=== PATIENT | male | born 1990 | race Two or more races ===

== ENCOUNTER 2019-07-19 13:29 | Inpatient (IN) | payer MEDICAID ==
[~2019-07-19] VITALS: Ht 180.3 cm; Wt 86.9 kg
[2019-07-19] MEDS ORDERED: METF-960 PO (13:56)
[2019-07-19] MEDS ORDERED: LOSA25TA71 PO (13:56)
[2019-07-19] MEDS ORDERED: SERT50TA12 PO (13:56)
[2019-07-19] MEDS ORDERED: LOSA50TA37 PO (14:01)
[2019-07-19 14:59] LABS: BASOPHILS % (AUTO) 0.2 % (0.0-2.0); EOSINOPHILS % (AUTO) 1.4 % (1.0-6.0); HEMATOCRIT 38.2 % (41-53); HEMOGLOBIN 12.6 g/dL (13.5-17.5); LYMPHOCYTES # (AUTO) 1.6 K/uL (1.0-4.8); LYMPHOCYTES % (AUTO) 15.9 % (22.0-44.0); MEAN CORPUSCULAR HEMOGLOBIN 27.5 pg (26.0-34.0); MEAN CORPUSCULAR VOLUME 83 fL (80-100); MONOCYTES # (AUTO) 0.8 K/uL (0.1-1.0); MONOCYTES % (AUTO) 7.7 % (2.0-9.0); NEUTROPHILS # (AUTO) 7.7 K/uL (1.8-7.7); NEUTROPHILS % (AUTO) 74.8 % (40.0-70.0); PLATELET COUNT (AUTO) 360 K/uL (150-450); RED BLOOD CELL COUNT(AUTO) 4.58 MIL/uL (4.50-5.90)
[2019-07-19 15:25] LABS: ANION GAP 12 mmol/L (8-16); CALCIUM, TOTAL 9.3 mg/dL (8.8-10.5); CARBON DIOXIDE 27 mmol/L (22-29); CHLORIDE 100 mmol/L (98-107); CREATININE 0.83 mg/dL (0.60-1.30); GLOMERULAR FILTR. RATE CALC > 60 mL/min (>60); GLUCOSE,RANDOM 197 mg/dL (70-110); POTASSIUM 3.7 mmol/L (3.5-5.1); SODIUM SERUM 139 mmol/L (136-145); UREA NITROGEN, BLOOD 11 mg/dL (7-18)
[2019-07-19 15:31] LABS: ALANINE AMINOTRANSFERASE 52 U/L (12-78); ALBUMIN 4.6 g/dL (3.4-5.0); ALKALINE PHOSPHATASE 59 U/L (46-116); ASPARTATE AMINOTRANSFERASE 53 U/L (15-37); BILIRUBIN,TOTAL 0.4 mg/dL (0.1-1.0); TOTAL PROTEIN, SERUM 8.4 g/dL (6.4-8.2)
[2019-07-19 16:15] LABS: AMPHET/METH SCREEN,URINE NEGATIVE (NEGATIVE); BARBITURATE SCREEN, URINE NEGATIVE (NEGATIVE); BENZODIAZEPINES SCREEN,URINE NEGATIVE (NEGATIVE); CANNABINOID SCREEN,URINE NEGATIVE (NEGATIVE); COCAINE SCREEN,URINE NEGATIVE (NEGATIVE); METHADONE SCREEN, URINE NEGATIVE (NEGATIVE); OPIATE SCREEN,URINE NEGATIVE (NEGATIVE)
[2019-07-19 16:16] LABS: PHENCYCLIDINE SCREEN,URINE NEGATIVE (NEGATIVE)
[2019-07-19] MEDS ORDERED: LOPERAMIDE HCL 2 MG CAPSULE PO PRN (18:45)
[2019-07-19] MEDS ORDERED: HydrOXYzine PAMOATE 50 MG CAPSULE PO PRN (18:45)
[2019-07-19] MEDS ORDERED: OLANZapine 5 MG RAPDIS TABLET PO PRN (18:45)
[2019-07-19] MEDS ORDERED: TUBERCULIN, PURIFIED PROTEIN DERIVATIVE 5 TU/0.1 ML SYRINGE ID ONE (18:45)
[2019-07-19] MEDS ORDERED: MAGNESIUM HYDROXIDE SUSPENSION 30 ML UDCUP PO PRN (18:45)
[2019-07-19] MEDS ORDERED: MAG HYDROX/AL HYDROX/SIMETH ES 30 ML SUSPENSION UDCUP PO PRN (18:45)
[2019-07-19] MEDS ORDERED: GuaiFENesin/D-METHORPHAN [SUGAR-FREE] 200-20MG/10 ML SYRUP UDCUP PO PRN (18:45)
[2019-07-19] MEDS ORDERED: ZOLPIDEM TARTRATE 10 MG TABLET PO PRN (18:45)
[2019-07-19] MEDS ORDERED: PROMETHAZINE HCL 25 MG TABLET PO PRN (18:45)
[2019-07-19] MEDS: THIAMINE 100 MG TABLET PO SCH (19:16)
[2019-07-19] MEDS: LORazepam 2 MG TABLET PO PRN (19:45)
[2019-07-19 23:10] VITALS: BP 141/82
[2019-07-19 23:13] LABS: GLUCOSE,POINT OF CARE 260 MG/DL (70-110)
[2019-07-19] MEDS ORDERED: PNEUMOCOCCAL VACCINE POLYVALENT 0.5 ML VIAL [PPSV23] IM ONE (23:30)
[2019-07-20 07:51] LABS: CHOL/HDL RATIO 4.5 (4.2-7.3); FREE T4 (FREE THYROXINE) 1.15 ng/dL (0.76-1.46); THYROID STIMULATING HORMONE 0.22 uIU/mL (0.36-3.74)
[2019-07-20 08:30] VITALS: BP 126/98
[2019-07-20] MEDS ORDERED: SERTRALINE HCL 50 MG TABLET PO SCH (09:00)
[2019-07-20] MEDS ORDERED: OLANZapine 5 MG RAPDIS TABLET PO SCH (09:00)
[2019-07-20] MEDS: THIAMINE 100 MG TABLET PO SCH ×2 (09:19→16:54)
[2019-07-20] MEDS: MULTIVITAMINS WITH MINERALS, THERAPEUTIC TABLET PO SCH (09:19)
[2019-07-20] MEDS: FOLIC ACID 1 MG TABLET PO SCH (09:19)
[2019-07-20] MEDS: NALTREXONE HCL 50 MG TABLET PO SCH (09:19)
[2019-07-20] MEDS: ACETAMINOPHEN 325 MG TABLET PO PRN (09:24)
[2019-07-20] MEDS ORDERED: DEXTROSE 50%-WATER 25 GM/50 ML SYRINGE IVP PRN (14:30)
[2019-07-20 16:00] VITALS: BP 150/79
[2019-07-20] MEDS: MetFORMIN HCL 500 MG TABLET PO SCH (16:54)
[2019-07-20 17:36] LABS: GLUCOMETER DEV NAME(LOC) 3E.I 2; GLUCOSE,POINT OF CARE 158 MG/DL (70-110)
[2019-07-20] MEDS: INSULIN LISPRO 100 UNITS/ML SQ PRN (17:41)
[2019-07-20] MEDS ORDERED: LURASIDONE HCL 20 MG TABLET PO PRN (20:00)
[2019-07-20] MEDS ORDERED: LURASIDONE HCL 20 MG TABLET PO SCH (21:00)
[2019-07-21] MEDS: LORazepam 2 MG TABLET PO PRN ×2 (02:47→08:59)
[2019-07-21 02:49] VITALS: BP 157/99
[2019-07-21 05:53] LABS: GLUCOMETER DEV NAME(LOC) 3E.I 2; GLUCOSE,POINT OF CARE 194 MG/DL (70-110)
[2019-07-21] MEDS: MetFORMIN HCL 500 MG TABLET PO SCH ×2 (06:43→16:38)
[2019-07-21] MEDS: INSULIN LISPRO 100 UNITS/ML SQ PRN ×2 (06:47→17:06)
[2019-07-21] MEDS: FOLIC ACID 1 MG TABLET PO SCH (08:15)
[2019-07-21] MEDS: THIAMINE 100 MG TABLET PO SCH ×2 (08:15→16:37)
[2019-07-21] MEDS: NALTREXONE HCL 50 MG TABLET PO SCH (08:15)
[2019-07-21] MEDS: SERTRALINE HCL 50 MG TABLET PO SCH (08:15)
[2019-07-21] MEDS: MULTIVITAMINS WITH MINERALS, THERAPEUTIC TABLET PO SCH (08:15)
[2019-07-21 08:30] VITALS: BP 153/98
[2019-07-21 16:00] VITALS: BP 146/83
[2019-07-21 17:45] LABS: GLUCOMETER DEV NAME(LOC) 3E.I 2; GLUCOSE,POINT OF CARE 170 MG/DL (70-110)
[2019-07-21] MEDS ORDERED: LURASIDONE HCL 40 MG TABLET PO SCH (21:00)
[2019-07-22 03:18] VITALS: BP 143/103
[2019-07-22 05:31] LABS: GLUCOMETER DEV NAME(LOC) 3E.I 2; GLUCOSE,POINT OF CARE 178 MG/DL (70-110)
[2019-07-22] MEDS: MetFORMIN HCL 500 MG TABLET PO SCH ×2 (06:35→16:36)
[2019-07-22] MEDS: INSULIN LISPRO 100 UNITS/ML SQ PRN (06:36)
[2019-07-22] MEDS: SERTRALINE HCL 50 MG TABLET PO SCH (08:11)
[2019-07-22] MEDS: NALTREXONE HCL 50 MG TABLET PO SCH (08:12)
[2019-07-22] MEDS: THIAMINE 100 MG TABLET PO SCH ×2 (08:12→16:36)
[2019-07-22] MEDS: FOLIC ACID 1 MG TABLET PO SCH (08:12)
[2019-07-22] MEDS: MULTIVITAMINS WITH MINERALS, THERAPEUTIC TABLET PO SCH (08:12)
[2019-07-22 08:30] VITALS: BP 143/97
[2019-07-22 17:04] LABS: GLUCOMETER DEV NAME(LOC) 3E.I 2; GLUCOSE,POINT OF CARE 139 MG/DL (70-110)
[2019-07-22 17:40] VITALS: BP 140/94
[2019-07-22] MEDS: ACETAMINOPHEN 325 MG TABLET PO PRN (17:50)
[2019-07-22] MEDS: LURASIDONE HCL 60 MG TABLET PO SCH (20:18)
[2019-07-22] MEDS: LORazepam 2 MG TABLET PO PRN (20:18)
[2019-07-23 06:05] LABS: GLUCOMETER DEV NAME(LOC) 3E.I 2; GLUCOSE,POINT OF CARE 159 MG/DL (70-110)
[2019-07-23 06:44] VITALS: BP 138/109
[2019-07-23] MEDS: MetFORMIN HCL 500 MG TABLET PO SCH ×2 (07:01→16:44)
[2019-07-23] MEDS: INSULIN LISPRO 100 UNITS/ML SQ PRN (07:05)
[2019-07-23 08:26] VITALS: BP 137/86
[2019-07-23] MEDS: SERTRALINE HCL 50 MG TABLET PO SCH (08:33)
[2019-07-23] MEDS: THIAMINE 100 MG TABLET PO SCH ×2 (08:33→16:44)
[2019-07-23] MEDS: FOLIC ACID 1 MG TABLET PO SCH (08:33)
[2019-07-23] MEDS: MULTIVITAMINS WITH MINERALS, THERAPEUTIC TABLET PO SCH (08:33)
[2019-07-23] MEDS: NALTREXONE HCL 50 MG TABLET PO SCH (08:34)
[2019-07-23 11:39] LABS: GLUCOMETER DEV NAME(LOC) 3E.I 2; GLUCOSE,POINT OF CARE 132 MG/DL (70-110)
[2019-07-23 16:50] VITALS: BP 144/83
[2019-07-23 17:55] LABS: GLUCOMETER DEV NAME(LOC) 3E.I 2; GLUCOSE,POINT OF CARE 137 MG/DL (70-110)
[2019-07-23 19:20] VITALS: BP 146/98
[2019-07-23] MEDS: LORazepam 2 MG TABLET PO PRN (19:20)
[2019-07-23] MEDS: LURASIDONE HCL 60 MG TABLET PO SCH (20:14)
[2019-07-24 05:35] LABS: GLUCOMETER DEV NAME(LOC) 3E.I 2; GLUCOSE,POINT OF CARE 102 MG/DL (70-110)
[2019-07-24] MEDS: MetFORMIN HCL 500 MG TABLET PO SCH ×2 (06:35→16:33)
[2019-07-24] MEDS: NALTREXONE HCL 50 MG TABLET PO SCH (08:28)
[2019-07-24] MEDS: MULTIVITAMINS WITH MINERALS, THERAPEUTIC TABLET PO SCH (08:28)
[2019-07-24] MEDS: THIAMINE 100 MG TABLET PO SCH ×2 (08:28→16:08)
[2019-07-24] MEDS: SERTRALINE HCL 50 MG TABLET PO SCH (08:29)
[2019-07-24] MEDS: FOLIC ACID 1 MG TABLET PO SCH (08:29)
[2019-07-24 10:29] VITALS: BP 154/92
[2019-07-24 16:00] VITALS: BP 158/86
[2019-07-24] MEDS: ACETAMINOPHEN 325 MG TABLET PO PRN (16:40)
[2019-07-24 16:56] LABS: GLUCOMETER DEV NAME(LOC) 3E.I 2; GLUCOSE,POINT OF CARE 120 MG/DL (70-110)
[2019-07-24] MEDS: LURASIDONE HCL 60 MG TABLET PO SCH (21:21)
[2019-07-24] MEDS: LORazepam 2 MG TABLET PO PRN (22:22)
[2019-07-25 05:41] LABS: GLUCOMETER DEV NAME(LOC) 3E.I 2; GLUCOSE,POINT OF CARE 90 MG/DL (70-110)
[2019-07-25] MEDS: MetFORMIN HCL 500 MG TABLET PO SCH ×2 (06:35→17:08)
[2019-07-25 09:21] VITALS: BP 153/82
[2019-07-25] MEDS: SERTRALINE HCL 50 MG TABLET PO SCH (09:24)
[2019-07-25] MEDS: THIAMINE 100 MG TABLET PO SCH ×2 (09:25→17:08)
[2019-07-25] MEDS: NALTREXONE HCL 50 MG TABLET PO SCH (09:25)
[2019-07-25] MEDS: FOLIC ACID 1 MG TABLET PO SCH (09:25)
[2019-07-25] MEDS: MULTIVITAMINS WITH MINERALS, THERAPEUTIC TABLET PO SCH (09:25)
[2019-07-25] MEDS: BACITRACIN 28.4 GM OINTMENT TP SCH ×2 (09:31→19:19)
[2019-07-25 16:00] VITALS: BP 151/91
[2019-07-25 16:42] LABS: GLUCOMETER DEV NAME(LOC) 3E.I 2; GLUCOSE,POINT OF CARE 153 MG/DL (70-110)
[2019-07-25] MEDS: LORazepam 2 MG TABLET PO PRN (17:08)
[2019-07-25] MEDS: INSULIN LISPRO 100 UNITS/ML SQ PRN (17:15)
[2019-07-25] MEDS: LURASIDONE HCL 60 MG TABLET PO SCH (20:43)
[2019-07-26 05:42] LABS: GLUCOMETER DEV NAME(LOC) 3E.I 2; GLUCOSE,POINT OF CARE 99 MG/DL (70-110)
[2019-07-26] MEDS: MetFORMIN HCL 500 MG TABLET PO SCH ×2 (06:47→17:03)
[2019-07-26] MEDS: INSULIN LISPRO 100 UNITS/ML SQ PRN (06:47)
[2019-07-26] MEDS: SERTRALINE HCL 50 MG TABLET PO SCH (08:29)
[2019-07-26] MEDS: BACITRACIN 28.4 GM OINTMENT TP SCH ×2 (08:30→16:05)
[2019-07-26] MEDS: THIAMINE 100 MG TABLET PO SCH ×2 (08:30→16:05)
[2019-07-26] MEDS: MULTIVITAMINS WITH MINERALS, THERAPEUTIC TABLET PO SCH (08:30)
[2019-07-26] MEDS: FOLIC ACID 1 MG TABLET PO SCH (08:30)
[2019-07-26] MEDS: NALTREXONE HCL 50 MG TABLET PO SCH (08:30)
[2019-07-26 09:14] VITALS: BP 135/76
[2019-07-26 18:19] VITALS: BP 143/98
[2019-07-26 18:24] VITALS: BP 143/98
[2019-07-26] MEDS ORDERED: LURASIDONE HCL 80 MG TABLET PO SCH (21:00)
[2019-07-27 06:14] LABS: GLUCOMETER DEV NAME(LOC) 3E.I 2; GLUCOSE,POINT OF CARE 135 MG/DL (70-110)
[2019-07-27] MEDS: MetFORMIN HCL 500 MG TABLET PO SCH ×2 (06:49→17:03)
[2019-07-27] MEDS: INSULIN LISPRO 100 UNITS/ML SQ PRN (06:49)
[2019-07-27] MEDS: THIAMINE 100 MG TABLET PO SCH ×2 (08:25→17:03)
[2019-07-27] MEDS: FOLIC ACID 1 MG TABLET PO SCH (08:25)
[2019-07-27] MEDS: MULTIVITAMINS WITH MINERALS, THERAPEUTIC TABLET PO SCH (08:25)
[2019-07-27] MEDS: NALTREXONE HCL 50 MG TABLET PO SCH (08:25)
[2019-07-27] MEDS: SERTRALINE HCL 100 MG TABLET PO SCH (08:25)
[2019-07-27] MEDS: BACITRACIN 28.4 GM OINTMENT TP SCH ×2 (08:26→17:03)
[2019-07-27 08:30] VITALS: BP 153/96
[2019-07-27 17:29] LABS: GLUCOMETER DEV NAME(LOC) 3E.I 2; GLUCOSE,POINT OF CARE 103 MG/DL (70-110)
[2019-07-27 18:49] VITALS: BP 160/96
[2019-07-27] MEDS ORDERED: LURASIDONE HCL 40 MG TABLET PO SCH (21:00)
[2019-07-27] MEDS ORDERED: LURASIDONE HCL 60 MG TABLET PO SCH (21:00)
[2019-07-28 05:17] VITALS: BP 151/87
[2019-07-28] MEDS: ACETAMINOPHEN 325 MG TABLET PO PRN (05:17)
[2019-07-28 05:36] LABS: GLUCOMETER DEV NAME(LOC) 3E.I 2; GLUCOSE,POINT OF CARE 119 MG/DL (70-110)
[2019-07-28] MEDS: MetFORMIN HCL 500 MG TABLET PO SCH ×2 (06:49→16:30)
[2019-07-28] MEDS: NALTREXONE HCL 50 MG TABLET PO SCH (08:06)
[2019-07-28] MEDS: MULTIVITAMINS WITH MINERALS, THERAPEUTIC TABLET PO SCH (08:06)
[2019-07-28] MEDS: FOLIC ACID 1 MG TABLET PO SCH (08:06)
[2019-07-28] MEDS: THIAMINE 100 MG TABLET PO SCH ×2 (08:06→16:19)
[2019-07-28] MEDS: SERTRALINE HCL 100 MG TABLET PO SCH (08:07)
[2019-07-28] MEDS: BACITRACIN 28.4 GM OINTMENT TP SCH ×2 (08:07→16:21)
[2019-07-28] MEDS: GABAPENTIN 300 MG CAPSULE PO SCH ×3 (08:07→16:19)
[2019-07-28 08:34] VITALS: BP 143/97
[2019-07-28] MEDS ORDERED: NALT50TA PO (15:47)
[2019-07-28] MEDS ORDERED: GABA-1181 PO (15:47)
[2019-07-28] MEDS ORDERED: LURA60TA PO (15:47)
[2019-07-28] MEDS ORDERED: SERT100T12 PO (15:47)
[2019-07-28] MEDS ORDERED: [UNRECOGNIZED DRUG - CODE] (16:10)
[2019-07-28] MEDS ORDERED: LANC-962 TP (16:11)
[2019-07-28] MEDS ORDERED: BLOO-296 MC (16:11)
[2019-07-28] MEDS ORDERED: LANC1COM7 (16:12)
[2019-07-28] MEDS ORDERED: LURASIDONE HCL 80 MG TABLET PO SCH (17:30)
[2019-07-28 18:10] LABS: GLUCOMETER DEV NAME(LOC) 3E.I 2; GLUCOSE,POINT OF CARE 125 MG/DL (70-110)
== END 2019-07-28 17:10 | disposition home or self-care (01) | DRG 885 ==
LOC: EMS 13:31 → AHU 16:10 → EMS 16:15 → 3EI 18:23
PROVIDERS: ADMIT Psychiatry & Neurology Psychiatry; ATTEND Psychiatry & Neurology Psychiatry
DX: F20.9 Schizophrenia, unspecified (principal); F41.9 Anxiety disorder, unspecified; I10 Essential (primary) hypertension; F17.200 Nicotine dependence, unspecified, uncomplicated; E11.9 Type 2 diabetes mellitus without complications; F64.9 Gender identity disorder, unspecified; Z79.899 Other long term (current) drug therapy; Z79.84 Long term (current) use of oral hypoglycemic drugs; Z91.19 Patient's noncompliance with other medical treatment and regimen; Z88.1 Allergy status to other antibiotic agents
CPT/HCPCS: 83036; 84439; 84443; 86592; G0480

== ENCOUNTER 2020-04-09 10:25 | Inpatient (IN) | payer MEDICAID ==
[~2020-04-09] VITALS: Ht 180.3 cm; Wt 95.5 kg
[~2020-04-09 10:25] MED LIST: BLOO-296 MC; GABA-1181 PO; LANC-962 TP; LANC1COM7; LOSA50TA37 PO; LURA60TA PO; METF-960 PO; NALT50TA PO; SERT100T12 PO; SERT50TA12 PO; [UNRECOGNIZED DRUG - CODE]
[2020-04-09 13:51] LABS: COVID AG,FIA SOURCE NASOPHARYNGEAL
[2020-04-09 13:53] LABS: BASOPHILS % (AUTO) 0.4 % (0.0-2.0); HEMATOCRIT 37.5 % (41-53); HEMOGLOBIN 12.5 g/dL (13.5-17.5); LYMPHOCYTES # (AUTO) 2.8 K/uL (1.0-4.8); LYMPHOCYTES % (AUTO) 30.2 % (22.0-44.0); MEAN CORPUSCULAR HEMOGLOBIN 28.6 pg (26.0-34.0); MEAN CORPUSCULAR HGB CONC 33.4 G/dL (31.0-37.0); MEAN CORPUSCULAR VOLUME 86 fL (80-100); MONOCYTES # (AUTO) 0.6 K/uL (0.1-1.0); MONOCYTES % (AUTO) 6.5 % (2.0-9.0); NEUTROPHILS # (AUTO) 5.8 K/uL (1.8-7.7); NEUTROPHILS % (AUTO) 61.9 % (40.0-70.0); PLATELET COUNT (AUTO) 494 K/uL (150-450); RED BLOOD CELL COUNT(AUTO) 4.39 MIL/uL (4.50-5.90)
[2020-04-09 14:52] LABS: ANION GAP 15 mmol/L (8-16); CALCIUM, TOTAL 9.6 mg/dL (8.8-10.5); CARBON DIOXIDE 25 mmol/L (22-29); CHLORIDE 101 mmol/L (98-107); CREATININE 0.95 mg/dL (0.60-1.30); GLOMERULAR FILTR. RATE CALC > 60 mL/min (>60); GLUCOSE,RANDOM 175 mg/dL (70-110); SODIUM SERUM 141 mmol/L (136-145); UREA NITROGEN, BLOOD 15 mg/dL (7-18)
[2020-04-09 14:55] LABS: AMPHET/METH SCREEN,URINE NEGATIVE (NEGATIVE); BARBITURATE SCREEN, URINE NEGATIVE (NEGATIVE); BENZODIAZEPINES SCREEN,URINE NEGATIVE (NEGATIVE); CANNABINOID SCREEN,URINE NEGATIVE (NEGATIVE); COCAINE SCREEN,URINE NEGATIVE (NEGATIVE); METHADONE SCREEN, URINE NEGATIVE (NEGATIVE); OPIATE SCREEN,URINE NEGATIVE (NEGATIVE)
[2020-04-09 14:55] LABS: ALANINE AMINOTRANSFERASE 28 U/L (12-78); ALBUMIN 4.7 g/dL (3.4-5.0); ALKALINE PHOSPHATASE 50 U/L (46-116); ASPARTATE AMINOTRANSFERASE 27 U/L (15-37); BILIRUBIN,TOTAL 0.2 mg/dL (0.1-1.0); TOTAL PROTEIN, SERUM 9.7 g/dL (6.4-8.2)
[2020-04-09 15:05] LABS: PHENCYCLIDINE SCREEN,URINE NEGATIVE (NEGATIVE)
[2020-04-09] MEDS ORDERED: ZOLPIDEM TARTRATE 10 MG TABLET PO PRN (16:00)
[2020-04-09] MEDS ORDERED: LORazepam 2 MG TABLET PO PRN (16:00)
[2020-04-09] MEDS ORDERED: HALOPERIDOL 5 MG TABLET PO PRN (16:00)
[2020-04-09] MEDS ORDERED: IBUPROFEN 600 MG TABLET PO ONE (19:00)
[2020-04-10 07:20] LABS: GLUCOSE,POINT OF CARE 263 MG/DL (70-110)
[2020-04-10 07:59] LABS: CHOL/HDL RATIO 6.4 (4.2-7.3); CHOLESTEROL 264 mg/dL (131-200); HDL CHOLESTEROL 41 mg/dL (40-60); TRIGLYCERIDES 593 mg/dL (15-150)
[2020-04-10] MEDS ORDERED: GuaiFENesin/D-METHORPHAN [SUGAR-FREE] 200-20MG/10 ML SYRUP UDCUP PO PRN (14:30)
[2020-04-10] MEDS ORDERED: CloNIDine HCL 0.1 MG TABLET PO PRN (14:30)
[2020-04-10] MEDS ORDERED: PETROLATUM,WHITE 28 GM JELLY TP PRN (14:30)
[2020-04-10] MEDS ORDERED: ONDANSETRON HCL 4 MG TABLET PO PRN (14:30)
[2020-04-10] MEDS ORDERED: MAGNESIUM HYDROXIDE SUSPENSION 30 ML UDCUP PO PRN (14:30)
[2020-04-10] MEDS ORDERED: NICOTINE 14 MG/24 HOUR PATCH TD PRN (14:30)
[2020-04-10] MEDS ORDERED: ACETAMINOPHEN 325 MG TABLET PO PRN (14:30)
[2020-04-10] MEDS ORDERED: ALBUTEROL SULFATE HFA 90 MCG/PUFF 8 GM INHALER IH PRN (14:30)
[2020-04-10] MEDS ORDERED: LOPERAMIDE HCL 2 MG CAPSULE PO PRN (14:30)
[2020-04-10] MEDS ORDERED: DOCUSATE SODIUM 100 MG CAPSULE PO PRN (14:30)
[2020-04-10] MEDS ORDERED: MAG HYDROX/AL HYDROX/SIMETH ES 30 ML SUSPENSION UDCUP PO PRN (14:30)
[2020-04-10 14:32] LABS: GLUCOMETER DEV NAME(LOC) BV2S.; GLUCOSE,POINT OF CARE 266 MG/DL (70-110)
[2020-04-10 14:40] VITALS: BP 145/92
[2020-04-10] MEDS: MetFORMIN HCL 500 MG TABLET PO SCH (16:21)
[2020-04-10 16:39] VITALS: BP 117/80
[2020-04-10 17:16] LABS: GLUCOMETER DEV NAME(LOC) BV2S.; GLUCOSE,POINT OF CARE 122 MG/DL (70-110)
[2020-04-11 01:02] VITALS: BP 110/79
[2020-04-11] MEDS ORDERED: INFLUENZA VIRUS VACCINE QVS 2020-21 (6MO+)/PF 60 MCG/0.5 ML SYRINGE IM ONE (05:30)
[2020-04-11] MEDS ORDERED: PNEUMOCOCCAL VACCINE POLYVALENT 0.5 ML VIAL [PPSV23] IM ONE (06:00)
[2020-04-11 07:00] LABS: GLUCOMETER DEV NAME(LOC) BV2S.; GLUCOSE,POINT OF CARE 166 MG/DL (70-110)
[2020-04-11] MEDS: MetFORMIN HCL 500 MG TABLET PO SCH ×2 (07:06→16:23)
[2020-04-11] MEDS: LOSARTAN POTASSIUM 50 MG TABLET PO SCH (08:19)
[2020-04-11 08:37] VITALS: BP 140/84
[2020-04-11] MEDS: SERTRALINE HCL 50 MG TABLET PO SCH (13:26)
[2020-04-11] MEDS: NALTREXONE HCL 50 MG TABLET PO SCH (13:26)
[2020-04-11] MEDS: GABAPENTIN 300 MG CAPSULE PO SCH ×2 (13:26→16:23)
[2020-04-11 16:33] VITALS: BP 131/80
[2020-04-11 16:47] LABS: GLUCOMETER DEV NAME(LOC) BV2S.; GLUCOSE,POINT OF CARE 222 MG/DL (70-110)
[2020-04-11] MEDS: LURASIDONE HCL 80 MG TABLET PO SCH (20:31)
[2020-04-12 00:45] VITALS: BP 129/63
[2020-04-12 06:40] LABS: GLUCOMETER DEV NAME(LOC) BV2S.; GLUCOSE,POINT OF CARE 140 MG/DL (70-110)
[2020-04-12] MEDS: MetFORMIN HCL 500 MG TABLET PO SCH ×2 (06:49→16:36)
[2020-04-12] MEDS: SERTRALINE HCL 50 MG TABLET PO SCH (08:09)
[2020-04-12] MEDS: NALTREXONE HCL 50 MG TABLET PO SCH (08:09)
[2020-04-12] MEDS: GABAPENTIN 300 MG CAPSULE PO SCH ×3 (08:09→16:36)
[2020-04-12] MEDS: LOSARTAN POTASSIUM 50 MG TABLET PO SCH (08:09)
[2020-04-12 08:24] VITALS: BP 146/88
[2020-04-12 16:36] VITALS: BP 172/94
[2020-04-12 16:49] LABS: GLUCOMETER DEV NAME(LOC) BV2S.; GLUCOSE,POINT OF CARE 174 MG/DL (70-110)
[2020-04-12 17:40] VITALS: BP 147/87
[2020-04-12] MEDS: LURASIDONE HCL 80 MG TABLET PO SCH (20:11)
[2020-04-13 01:12] VITALS: BP 124/64
[2020-04-13] MEDS: MetFORMIN HCL 500 MG TABLET PO SCH ×2 (06:22→17:00)
[2020-04-13 06:44] LABS: GLUCOMETER DEV NAME(LOC) BV2S.; GLUCOSE,POINT OF CARE 195 MG/DL (70-110)
[2020-04-13] MEDS: SERTRALINE HCL 50 MG TABLET PO SCH (08:31)
[2020-04-13] MEDS: GABAPENTIN 300 MG CAPSULE PO SCH ×3 (08:31→15:52)
[2020-04-13] MEDS: LOSARTAN POTASSIUM 50 MG TABLET PO SCH (08:31)
[2020-04-13] MEDS: NALTREXONE HCL 50 MG TABLET PO SCH (08:31)
[2020-04-13 08:47] VITALS: BP 147/92
[2020-04-13] MEDS: IBUPROFEN 400 MG TABLET PO PRN ×2 (10:43→15:52)
[2020-04-13 11:24] VITALS: BP 137/75
[2020-04-13 16:23] LABS: GLUCOMETER DEV NAME(LOC) BV2S.; GLUCOSE,POINT OF CARE 135 MG/DL (70-110)
[2020-04-13 17:11] VITALS: BP 146/92
[2020-04-13] MEDS: LURASIDONE HCL 80 MG TABLET PO SCH (20:24)
[2020-04-14 01:19] VITALS: BP 132/82
[2020-04-14 06:30] LABS: GLUCOMETER DEV NAME(LOC) BV2S.; GLUCOSE,POINT OF CARE 146 MG/DL (70-110)
[2020-04-14] MEDS: MetFORMIN HCL 500 MG TABLET PO SCH ×2 (06:46→16:07)
[2020-04-14] MEDS: IBUPROFEN 400 MG TABLET PO PRN ×2 (06:52→18:07)
[2020-04-14] MEDS: GABAPENTIN 300 MG CAPSULE PO SCH ×3 (08:17→16:08)
[2020-04-14] MEDS: LOSARTAN POTASSIUM 50 MG TABLET PO SCH (08:17)
[2020-04-14] MEDS: SERTRALINE HCL 50 MG TABLET PO SCH (08:17)
[2020-04-14] MEDS: NALTREXONE HCL 50 MG TABLET PO SCH (08:17)
[2020-04-14 08:51] VITALS: BP 148/88
[2020-04-14 16:38] VITALS: BP 121/80
[2020-04-14 17:15] LABS: GLUCOMETER DEV NAME(LOC) BV2S.; GLUCOSE,POINT OF CARE 139 MG/DL (70-110)
[2020-04-14] MEDS: LURASIDONE HCL 80 MG TABLET PO SCH (20:16)
[2020-04-15] MEDS: IBUPROFEN 400 MG TABLET PO PRN (05:50)
[2020-04-15 06:04] LABS: GLUCOMETER DEV NAME(LOC) BV2S.; GLUCOSE,POINT OF CARE 133 MG/DL (70-110)
[2020-04-15] MEDS: MetFORMIN HCL 500 MG TABLET PO SCH ×2 (06:36→16:16)
[2020-04-15 07:52] LABS: COVID AG,FIA SOURCE NASAL SWAB
[2020-04-15] MEDS: SERTRALINE HCL 50 MG TABLET PO SCH (08:07)
[2020-04-15] MEDS: NALTREXONE HCL 50 MG TABLET PO SCH (08:07)
[2020-04-15] MEDS: GABAPENTIN 300 MG CAPSULE PO SCH ×3 (08:07→16:16)
[2020-04-15] MEDS: LOSARTAN POTASSIUM 50 MG TABLET PO SCH (08:07)
[2020-04-15 08:52] VITALS: BP 140/86
[2020-04-15] MEDS: ESTRADIOL 1 MG TABLET PO SCH (16:15)
[2020-04-15 16:24] VITALS: BP 136/83
[2020-04-15 16:24] LABS: GLUCOMETER DEV NAME(LOC) BV2S.; GLUCOSE,POINT OF CARE 153 MG/DL (70-110)
[2020-04-15] MEDS: LURASIDONE HCL 80 MG TABLET PO SCH (20:17)
[2020-04-16 01:11] VITALS: BP 136/74
[2020-04-16 06:46] LABS: GLUCOMETER DEV NAME(LOC) BV2S.; GLUCOSE,POINT OF CARE 173 MG/DL (70-110)
[2020-04-16] MEDS: MetFORMIN HCL 500 MG TABLET PO SCH (07:21)
[2020-04-16] MEDS ORDERED: NALT50TA6 PO ×2 (07:54→07:56)
[2020-04-16] MEDS ORDERED: SERT50TA12 PO (07:55)
[2020-04-16] MEDS ORDERED: SPIR50 PO (07:56)
[2020-04-16] MEDS ORDERED: ESTR2TAB5 PO (07:58)
[2020-04-16] MEDS: GABAPENTIN 300 MG CAPSULE PO SCH ×2 (08:11→12:25)
[2020-04-16] MEDS: ESTRADIOL 1 MG TABLET PO SCH (08:11)
[2020-04-16] MEDS: LOSARTAN POTASSIUM 50 MG TABLET PO SCH (08:11)
[2020-04-16] MEDS: NALTREXONE HCL 50 MG TABLET PO SCH (08:11)
[2020-04-16] MEDS: SERTRALINE HCL 50 MG TABLET PO SCH (08:11)
[2020-04-16 08:58] VITALS: BP 118/67
[2020-04-16] MEDS ORDERED: SPIRONOLACTONE 50 MG TABLET PO SCH (09:00)
== END 2020-04-16 16:00 | disposition home or self-care (01) | DRG 750 ==
LOC: EMS 10:25 → UNDOADMIN 15:50 → 3EI 15:50 → B2S 04-10 13:33
PROVIDERS: ADMIT Psychiatry & Neurology Child & Adolescent Psychiatry; ATTEND Psychiatry & Neurology Child & Adolescent Psychiatry
PROC: 3E02340 Introduction of Influenza Vaccine into Muscle, Percutaneous Approach (ICD-10-PCS; principal; 2020-04-11)
PROC: 3E0234Z Introduction of Serum, Toxoid and Vaccine into Muscle, Percutaneous Approach (ICD-10-PCS; 2020-04-11)
DX: F25.1 Schizoaffective disorder, depressive type (principal); D64.9 Anemia, unspecified; E11.9 Type 2 diabetes mellitus without complications; Z79.899 Other long term (current) drug therapy; I10 Essential (primary) hypertension; R79.89 Other specified abnormal findings of blood chemistry; Z20.822 Contact with and (suspected) exposure to COVID-19; Z23 Encounter for immunization
CPT/HCPCS: 87426; 90686; 90732; 99285; G0480